=== PATIENT | male | born 1965 | race Caucasian/White ===

== ENCOUNTER 2022-05-22 16:16 | Outpatient (CLI) | payer OTHER, SELFPAY ==
--- NOTE | ~2022-05-22 | XR_ITS ---
XR lumbar spine 2-3V DATE: 05/22/2022 16:44 INDICATION: Lumbago. Intermittent back pain TECHNIQUE: AP, lateral, coned lateral lumbosacral views COMPARISON: None FINDINGS: The lumbar vertebrae are normally aligned without evidence of fracture or bone destruction. The lumbar pedicles are intact. There is moderately severe degenerative disc disease at L1-2, moderate degenerative disease at L2-3 a nd mild to moderate degenerative disc disease at L3-4, L4-5 and L5-S1. The sacroiliac joints are intact. IMPRESSION: Multilevel degenerative disc disease, most prominent at L1-2 Reviewed, dictated and finalized at location [facility]
== END 2022-05-22 16:17 | disposition home or self-care (01) ==
PROVIDERS: PCP Family Medicine; Visit Provider Family Medicine
DX: M54.50 Low back pain, unspecified (principal); M51.36 Other intervertebral disc degeneration, lumbar region
CPT/HCPCS: 72100